=== PATIENT | male | born 1960 | race Caucasian/White ===

== ENCOUNTER 2017-02-12 12:29 | Inpatient (IN) | payer MEDICAID ==
[~2017-02-12] VITALS: Ht 188 cm; Wt 89.3 kg
[~2017-02-12 12:29] MED LIST: ALBUAER3 IN; HYDR-1421 PO; IBU800T PO
[2017-02-12 13:31] LABS: Basophils # (auto) 0.1 uL; Basophils % (auto) 0.7 % (0.0-2.0); Eosinophils # (auto) 0.1 uL; Eosinophils % (auto) 1.4 % (0.0-7.0); Hematocrit 46.5 % (41.0-53.0); Hemoglobin 15.6 g/dL (13.5-17.5); Lymphocytes # (auto) 1.4 uL; Lymphocytes % (auto) 15.8 % (10.0-50.0); Mean Corpuscular Hemoglobin 32.7 pg (28.0-32.0); Mean Corpuscular Hgb Conc. 33.6 g/dL (32.0-36.0); Mean Corpuscular Volume 97.3 fL (80.0-100.0); Mean Platelet Volume 8.9 fL (7.4-10.4); Monocytes # (auto) 0.7 uL; Monocytes % (auto) 7.8 % (0.0-12.0); Neutrophils # (auto) 6.4 uL; Neutrophils % (auto) 74.3 % (37.0-80.0); Platelet Count (auto) 232 10^3/uL (140-450); Red Cell Distribution Width 13.9 % (11.6-16.0); White Blood Cell 8.7 10^3/uL (4.4-10.8)
[2017-02-12 13:36] LABS: Albumin 3.9 g/dL (3.4-5.0); BUN/Creatinine Ratio 16.4; Bilirubin, Total 0.6 mg/dL (0.2-1.0); Calcium 9.1 mg/dL (8.5-10.1); Potassium 3.9 mmol/L (3.5-5.1); Total Protein 7.6 g/dL (6.4-8.2)
[2017-02-12] MEDS ORDERED: SODIUM CHLORIDE 0.9% 1,000 ML IV ONE (17:15)
[2017-02-12] MEDS ORDERED: HYDROmorphone HCL 2 MG/ML VL IV ONE (17:30)
[2017-02-12] MEDS ORDERED: ALUM & MAG HYDROX-SIMETH LIQ(MAALOX) 30 ML PO ONE (17:30)
[2017-02-12] MEDS ORDERED: DONNATAL 5ml ORAL Elix (BELLADONNA ALK-PHENOBARB) PO ONE (17:30)
[2017-02-12] MEDS ORDERED: PANTOPRAZOLE SODIUM 40 MG/10 ML VIAL IV ONE (17:30)
[2017-02-12] MEDS ORDERED: ONDANSETRON HCL 4 MG/2 ML VIAL IV ONE (17:30)
[2017-02-12] MEDS ORDERED: LIDOCAINE VISCOUS 2% 15ML UD PO ONE (17:30)
[2017-02-12 17:36] LABS: Urine RBC None Seen /hpf (0 - 3)
[2017-02-12 17:47] LABS: Urine Bilirubin Negative (Negative); Urine Blood Negative /uL (Negative); Urine Color Yellow (Yellow); Urine Glucose Normal (Normal); Urine Ketone Negative (Negative); Urine Nitrite Negative (Negative); Urine Urobilinogen Normal (Negative)
[2017-02-12 17:50] LABS: Amylase 16 U/L (25-115)
[2017-02-12] MEDS ORDERED: LORazepam 0.5 MG TAB PO PRN (18:45)
[2017-02-12] MEDS ORDERED: NITROGLYCERIN 0.4 MG SL TAB SL PRN (18:45)
[2017-02-12] MEDS ORDERED: ACETAMINOPHEN 500 MG TAB PO PRN (18:45)
[2017-02-12] MEDS ORDERED: MORPHINE SULF INJ 2 MG/ML SYRINGE 1ML IV PRN (18:45)
[2017-02-12] MEDS ORDERED: HYDROcodone-ACET 5/325MG TAB PO PRN (18:45)
[2017-02-12] MEDS ORDERED: PROMETHAZINE HCL 25 MG/ML 1ML IV PRN (18:45)
[2017-02-12] MEDS ORDERED: TEMAZEPAM 15 MG CAP PO PRN (18:45)
[2017-02-12] MEDS: SODIUM CHLORIDE 0.9% 1,000 ML IV SCH (19:00)
[2017-02-12] MEDS: FAMOTIDINE (10MG/ML) 2ML VL IV SCH ×2 (19:39→23:17)
[2017-02-12] MEDS: MORPHINE SULF INJ 2 MG/ML SYRINGE 1ML IV PRN (20:33)
[2017-02-12 21:00] VITALS: BP 154/89
[2017-02-12 21:20] VITALS: BP 154/89
[2017-02-12] MEDS: metroNIDAZOLE 500MG/100ML 100 ML IV SCH (23:53)
[2017-02-13] MEDS: SODIUM CHLORIDE 0.9% 1,000 ML IV SCH (04:50)
[2017-02-13 05:00] VITALS: BP 145/85
[2017-02-13] MEDS: metroNIDAZOLE 500MG/100ML 100 ML IV SCH ×2 (05:50→12:00)
[2017-02-13] MEDS: MORPHINE SULF INJ 2 MG/ML SYRINGE 1ML IV PRN ×2 (06:02→10:20)
[2017-02-13 09:17] VITALS: BP 142/79
[2017-02-13] MEDS ORDERED: PANTOPRAZOLE 40 MG TAB PO SCH (10:00)
[2017-02-13] MEDS ORDERED: FAMOTIDINE (10MG/ML) 2ML VL IV SCH (10:00)
[2017-02-13] MEDS: FAMOTIDINE (10MG/ML) 2ML VL IV SCH (10:00)
[2017-02-13 10:33] VITALS: BP 142/79
[2017-02-13 12:54] VITALS: BP 159/108
== END 2017-02-13 12:56 | disposition home or self-care (01) | DRG 241 ==
LOC: ER 12:29 → EDBD 12:29 → TELE 12:30 → TELE-EAST 20:55
PROVIDERS: ADMIT Internal Medicine; ATTEND Internal Medicine
DX: K29.20 Alcoholic gastritis without bleeding (principal); F32.9 Major depressive disorder, single episode, unspecified; F10.129 Alcohol abuse with intoxication, unspecified; F17.210 Nicotine dependence, cigarettes, uncomplicated; I70.8 Atherosclerosis of other arteries; K57.30 Diverticulosis of large intestine without perforation or abscess without bleeding; Z80.42 Family history of malignant neoplasm of prostate; G56.00 Carpal tunnel syndrome, unspecified upper limb; F12.90 Cannabis use, unspecified, uncomplicated; Z88.0 Allergy status to penicillin; Z71.9 Counseling, unspecified; Z84.89 Family history of other specified conditions; Z80.9 Family history of malignant neoplasm, unspecified; Z83.49 Family history of other endocrine, nutritional and metabolic diseases; Y90.0 Blood alcohol level of less than 20 mg/100 ml
CPT/HCPCS: 36415; 71010; 74176; 76705; 80053; 80307; 80320; 81001; 82150; 82550; 83690; 85025; 85652; 86141; 96374; 96375; 99291; C9113; J2405; J3490

== ENCOUNTER 2017-07-05 08:06 | Emergency (ER) | payer MEDICAID ==
[~2017-07-05] VITALS: Ht 188 cm; Wt 90.7 kg
[2017-07-05 08:20] VITALS: BP 160/99
[2017-07-05] MEDS ORDERED: KETOROLAC TROMETH 60MG/2ML VIAL IM ONE (08:45)
== END 2017-07-05 09:14 | disposition home or self-care (01) ==
LOC: ER 08:06
DX: M51.37 Other intervertebral disc degeneration, lumbosacral region (principal); G89.29 Other chronic pain; M54.5 Low back pain; F17.210 Nicotine dependence, cigarettes, uncomplicated; Z88.0 Allergy status to penicillin
CPT/HCPCS: 72100; 93005; 96372; 99284; J1885

== ENCOUNTER 2017-08-17 07:12 | Emergency (ER) | payer MEDICAID ==
[~2017-08-17] VITALS: Ht 188 cm; Wt 86.2 kg
[2017-08-17 07:25] VITALS: BP 155/95
[2017-08-17] MEDS ORDERED: ONDANSETRON HCL 4 MG/2 ML VIAL IM ONE (07:45)
[2017-08-17] MEDS ORDERED: MORPHINE SULF INJ 2 MG/ML SYRINGE 1ML IM ONE (07:45)
== END 2017-08-17 08:05 | disposition home or self-care (01) ==
LOC: ER 07:12
DX: M50.21 Other cervical disc displacement, high cervical region (principal); F17.210 Nicotine dependence, cigarettes, uncomplicated; Z88.0 Allergy status to penicillin
CPT/HCPCS: 96372; 99284; J2270; J2405

== ENCOUNTER → 2017-09-21 | Emergency (ER) | payer MEDICAID | END | disposition left against medical advice (07) | LOC: ER 06:37 | DX: R06.02 Shortness of breath (principal); Z53.21 Procedure and treatment not carried out due to patient leaving prior to being seen by health care provider ==

== ENCOUNTER 2017-09-23 12:34 | Emergency (ER) | payer MEDICAID ==
[2017-09-23 13:27] LABS: Basophils # (auto) 0 uL; Basophils % (auto) 0.4 % (0.0-2.0); Eosinophils # (auto) 0.1 uL; Hematocrit 44.4 % (41.0-53.0); Hemoglobin 14.9 g/dL (13.5-17.5); Lymphocytes % (auto) 12.4 % (10.0-50.0); Mean Corpuscular Hemoglobin 33.9 pg (28.0-32.0); Mean Corpuscular Hgb Conc. 33.5 g/dL (32.0-36.0); Mean Corpuscular Volume 101.2 fL (80.0-100.0); Monocytes # (auto) 0.7 uL; Monocytes % (auto) 8.8 % (0.0-12.0); Neutrophils # (auto) 6.5 uL; Neutrophils % (auto) 77.4 % (37.0-80.0); Platelet Count (auto) 269 10^3/uL (140-450); Red Blood Cells 4.39 10^6/uL (4.5-5.90); Red Cell Distribution Width 12.9 % (11.8-14.3); White Blood Cell 8.4 10^3/uL (4.4-10.8)
[2017-09-23 13:51] LABS: BUN/Creatinine Ratio 12.9; Bilirubin, Total 0.7 mg/dL (0.2-1.0); Calcium 8.9 mg/dL (8.5-10.1); Potassium 4.2 mmol/L (3.5-5.1); Total Protein 7.6 g/dL (6.4-8.2)
[2017-09-23] MEDS ORDERED: ALBUTEROL SULF 2.5 MG/0.5ML(0.5%) NEB SOLN ONE (19:39)
[2017-09-23] MEDS ORDERED: IPRATROPIUM BROM 0.5 MG/2.5ML INH SOL ONE (19:39)
== END 2017-09-23 20:30 | disposition left against medical advice (07) ==
LOC: ER 12:40
DX: R07.89 Other chest pain (principal); I10 Essential (primary) hypertension; F17.210 Nicotine dependence, cigarettes, uncomplicated; J44.9 Chronic obstructive pulmonary disease, unspecified
CPT/HCPCS: 36415; 71046; 80053; 84484; 85025; 93005; 94640

== ENCOUNTER 2017-09-24 09:04 | Inpatient (IN) | payer MEDICAID ==
[~2017-09-24] VITALS: Ht 188 cm; Wt 100.4 kg
[2017-09-24 09:35] LABS: Basophils # (auto) 0.1 uL; Eosinophils # (auto) 0.1 uL; Hemoglobin 14.5 g/dL (13.5-17.5); Lymphocytes # (auto) 1.3 uL; Neutrophils # (auto) 5.7 uL; White Blood Cell 8.1 10^3/uL (4.4-10.8)
[2017-09-24 09:37] LABS: Basophils % (auto) 0.7 % (0.0-2.0); Eosinophils % (auto) 1.6 % (0.0-7.0); Hematocrit 42.4 % (41.0-53.0); Lymphocytes % (auto) 16.5 % (10.0-50.0); Mean Corpuscular Hemoglobin 34.5 pg (28.0-32.0); Mean Corpuscular Hgb Conc. 34.3 g/dL (32.0-36.0); Mean Corpuscular Volume 100.7 fL (80.0-100.0); Monocytes # (auto) 0.9 uL; Monocytes % (auto) 10.6 % (0.0-12.0); Neutrophils % (auto) 70.6 % (37.0-80.0); Nucleated Red Blood Cells % 0.1 %; Platelet Count (auto) 263 10^3/uL (140-450); Red Blood Cells 4.21 10^6/uL (4.5-5.90)
[2017-09-24 10:05] LABS: Albumin 3.8 g/dL (3.4-5.0); BUN/Creatinine Ratio 9.3; Calcium 8.5 mg/dL (8.5-10.1); Magnesium 2.4 mg/dL (1.6-2.6); Potassium 4.4 mmol/L (3.5-5.1); Total Protein 7.1 g/dL (6.4-8.2)
[2017-09-24 12:18] LABS: Bilirubin, Total 0.9 mg/dL (0.2-1.0)
[2017-09-24] MEDS ORDERED: ASPirin 81 mg TAB PO ONE (16:15)
[2017-09-24 16:50] LABS: INR 0.95 (0.9-1.15); Prothrombin Time 10.3 sec (9.37-12.3)
[2017-09-24 16:52] LABS: Urine Bacteria NONE SEEN /hpf (None Seen); Urine Blood Negative /uL (Negative); Urine Mucus FEW (None Seen); Urine Specific Gravity 1.021 (1.001-1.035); Urine WBC 5 /hpf (0 - 3)
[2017-09-24] MEDS ORDERED: IPRATROPIUM BROM 0.5 MG/2.5ML INH SOL HHN ONE (17:15)
[2017-09-24] MEDS ORDERED: ALBUTEROL SULF 2.5 MG/0.5ML(0.5%) NEB SOLN HHN ONE (17:15)
[2017-09-24] MEDS ORDERED: methylPREDNISolone SOD SUCC 125 MG/2 ML VL IV ONE (17:15)
[2017-09-24] MEDS ORDERED: LORazepam 2MG/ML-1ML VIAL IV ONE (17:30)
[2017-09-24] MEDS ORDERED: LORazepam 0.5 MG TAB PO PRN (17:45)
[2017-09-24] MEDS ORDERED: ACETAMINOPHEN 500 MG TAB PO PRN (17:45)
[2017-09-24] MEDS ORDERED: PROMETHAZINE HCL 25 MG/ML 1ML IV PRN (17:45)
[2017-09-24] MEDS ORDERED: LACTULOSE 20Gm/30ML SOLN PO PRN (17:45)
[2017-09-24] MEDS ORDERED: MORPHINE SULFATE 10 MG/ML INJ 1ML SDV IV PRN ×2 (17:45)
[2017-09-24] MEDS ORDERED: TEMAZEPAM 15 MG CAP PO PRN (17:45)
[2017-09-24] MEDS ORDERED: SODIUM CHLORIDE 0.9% 1,000 ML IV SCH (17:45)
[2017-09-24] MEDS ORDERED: HYDROcodone-ACET 5/325MG TAB PO PRN (17:45)
[2017-09-24] MEDS ORDERED: ALBUTEROL SULF 2.5 MG/0.5ML(0.5%) NEB SOLN NEB PRN (17:45)
[2017-09-24] MEDS ORDERED: NITROGLYCERIN 0.4 MG SL TAB SL PRN (17:45)
[2017-09-24] MEDS ORDERED: IPRATROPIUM BROM 0.5 MG/2.5ML INH SOL NEB SCH (18:00)
[2017-09-24] MEDS ORDERED: ALBUTEROL SULF 2.5 MG/0.5ML(0.5%) NEB SOLN NEB SCH (18:00)
[2017-09-24 18:11] VITALS: BP 153/96
[2017-09-24] MEDS ORDERED: METOPROLOL TARTRATE 25 MG TAB PO ONE (18:30)
[2017-09-24 19:04] LABS: Alcohol, Urine < 3.0 mg/dL (0-5); Amphetamine Screen, Urine NEGATIVE (NEGATIVE); Barbiturate Scree,Urine NEGATIVE (NEGATIVE); Benzodiazephine Screen, Urine NEGATIVE (NEGATIVE); Cannabinoid Screen, Urine POSITIVE (NEGATIVE); Cocaine Screen, Urine NEGATIVE (NEGATIVE); Opiate Scree,Urine POSITIVE (NEGATIVE); Phencyclidine Screen, Urine NEGATIVE (NEGATIVE)
[2017-09-24] MEDS ORDERED: DOXYCYCLINE HYC 100MG/250ML 250 ML IV SCH (19:30)
[2017-09-24] MEDS ORDERED: OSELTAMIVIR 75 MG CAP PO ONE (19:30)
[2017-09-24] MEDS ORDERED: METOPROLOL TARTRATE 25 MG TAB PO SCH (22:00)
[2017-09-25] MEDS ORDERED: methylPREDNISolone SOD SUCC 40 MG/ML VL IV SCH
[2017-09-25] MEDS ORDERED: TEMAZEPAM 15 MG CAP ONE (02:06)
[2017-09-25] MEDS ORDERED: LORazepam 0.5 MG TAB ONE ×2 (02:06→09:18)
[2017-09-25] MEDS ORDERED: IPRATROPIUM BROM 0.5 MG/2.5ML INH SOL ONE (08:02)
[2017-09-25] MEDS ORDERED: ALBUTEROL SULF 2.5 MG/0.5ML(0.5%) NEB SOLN ONE (08:02)
[2017-09-25] MEDS ORDERED: HYDROcodone-ACET 5/325MG TAB ONE (09:18)
[2017-09-25] MEDS ORDERED: ALBUTEROL SULF 2.5 MG/0.5ML(0.5%) NEB SOLN NEB PRN (09:30)
[2017-09-25] MEDS ORDERED: ACETAMINOPHEN 500 MG TAB PO PRN (09:30)
[2017-09-25] MEDS ORDERED: MORPHINE SULF INJ 2 MG/ML SYRINGE 1ML IV PRN (09:30)
[2017-09-25] MEDS ORDERED: PROMETHAZINE HCL 25 MG/ML 1ML IV PRN (09:30)
[2017-09-25] MEDS ORDERED: LACTULOSE 20Gm/30ML SOLN PO PRN (09:30)
[2017-09-25] MEDS: LORazepam 0.5 MG TAB PO PRN ×2 (09:44→18:20)
[2017-09-25] MEDS: HYDROcodone-ACET 5/325MG TAB PO PRN ×2 (09:44→18:21)
[2017-09-25] MEDS ORDERED: OSELTAMIVIR 75 MG CAP PO ONE (09:45)
[2017-09-25] MEDS ORDERED: ASPirin 81 mg TAB ONE (09:46)
[2017-09-25] MEDS ORDERED: ENOXAPARIN SOD 40 MG/0.4 ML SYRINGE SC ONE (09:49)
[2017-09-25] MEDS ORDERED: OSELTAMIVIR 75 MG CAP PO SCH (10:00)
[2017-09-25] MEDS: SODIUM CHLORIDE 0.9% 1,000 ML IV SCH (10:09)
[2017-09-25] MEDS: METOPROLOL TARTRATE 25 MG TAB PO SCH ×2 (10:09→22:34)
[2017-09-25] MEDS: DOXYCYCLINE HYC 100MG/250ML 250 ML IV SCH ×2 (10:09→21:29)
[2017-09-25] MEDS: ASPirin 81 mg TAB PO SCH (10:09)
[2017-09-25] MEDS: ENOXAPARIN SOD 40 MG/0.4 ML SYRINGE SC SCH (10:10)
[2017-09-25 10:33] LABS: CRP High Sensitivity 0.26 mg/dL (< 0.3)
[2017-09-25] MEDS: IBUPROFEN 600 MG TAB PO SCH ×2 (11:00→22:34)
[2017-09-25] MEDS: methylPREDNISolone SOD SUCC 40 MG/ML VL IV SCH ×2 (11:52→18:20)
[2017-09-25 12:44] LABS: Basophils # (auto) 0 uL; Basophils % (auto) 0.2 % (0.0-2.0); Eosinophils # (auto) 0 uL; Eosinophils % (auto) 0.1 % (0.0-7.0)
[2017-09-25 12:46] LABS: Hematocrit 41.3 % (41.0-53.0); Hemoglobin 13.7 g/dL (13.5-17.5); Lymphocytes # (auto) 1.1 uL; Lymphocytes % (auto) 7.8 % (10.0-50.0); Mean Corpuscular Hemoglobin 33.9 pg (28.0-32.0); Mean Corpuscular Hgb Conc. 33.1 g/dL (32.0-36.0); Mean Corpuscular Volume 102.3 fL (80.0-100.0); Monocytes % (auto) 7.2 % (0.0-12.0); Neutrophils # (auto) 11.5 uL; Neutrophils % (auto) 84.7 % (37.0-80.0); Platelet Count (auto) 290 10^3/uL (140-450); Red Blood Cells 4.04 10^6/uL (4.5-5.90); Red Cell Distribution Width 13.1 % (11.8-14.3); White Blood Cell 13.6 10^3/uL (4.4-10.8)
[2017-09-25 12:48] LABS: Albumin 3.6 g/dL (3.4-5.0); Calcium 8.7 mg/dL (8.5-10.1)
[2017-09-25 12:52] LABS: Bilirubin, Total 0.6 mg/dL (0.2-1.0); Total Protein 6.8 g/dL (6.4-8.2)
[2017-09-25 14:14] LABS: BUN/Creatinine Ratio 18.7
[2017-09-25] MEDS: IPRATROPIUM BROM 0.5 MG/2.5ML INH SOL NEB SCH ×2 (14:27→19:00)
[2017-09-25] MEDS: ALBUTEROL SULF 2.5 MG/0.5ML(0.5%) NEB SOLN NEB SCH ×2 (14:27→19:00)
[2017-09-25 22:13] VITALS: BP 123/77
[2017-09-25] MEDS: TEMAZEPAM 15 MG CAP PO PRN (22:34)
[2017-09-26] MEDS: methylPREDNISolone SOD SUCC 125 MG/2 ML VL IV SCH ×4 (00:46→16:54)
[2017-09-26] MEDS: SODIUM CHLORIDE 0.9% 1,000 ML IV SCH ×2 (00:46→11:49)
[2017-09-26 05:17] VITALS: BP 139/88
[2017-09-26] MEDS: HYDROcodone-ACET 5/325MG TAB PO PRN ×3 (06:16→20:14)
[2017-09-26] MEDS: IPRATROPIUM BROM 0.5 MG/2.5ML INH SOL NEB SCH ×5 (06:28→22:09)
[2017-09-26] MEDS: ALBUTEROL SULF 2.5 MG/0.5ML(0.5%) NEB SOLN NEB SCH ×5 (06:28→22:09)
[2017-09-26 08:00] VITALS: BP 122/91
[2017-09-26 09:00] VITALS: BP 122/91
[2017-09-26] MEDS: LORazepam 0.5 MG TAB PO PRN (09:31)
[2017-09-26] MEDS: IBUPROFEN 600 MG TAB PO SCH ×2 (11:37→21:47)
[2017-09-26] MEDS: ENOXAPARIN SOD 40 MG/0.4 ML SYRINGE SC SCH (11:37)
[2017-09-26] MEDS: METOPROLOL TARTRATE 25 MG TAB PO SCH ×2 (11:38→21:47)
[2017-09-26] MEDS: DOXYCYCLINE HYC 100MG/250ML 250 ML IV SCH ×2 (11:38→21:46)
[2017-09-26] MEDS: ASPirin 81 mg TAB PO SCH (11:47)
[2017-09-26 13:00] VITALS: BP 141/98
[2017-09-26 17:00] VITALS: BP 150/103
[2017-09-26] MEDS: TEMAZEPAM 15 MG CAP PO PRN (21:47)
[2017-09-26 22:00] VITALS: BP 131/95
[2017-09-27] MEDS: methylPREDNISolone SOD SUCC 125 MG/2 ML VL IV SCH ×5 (00:17→23:48)
[2017-09-27] MEDS: SODIUM CHLORIDE 0.9% 1,000 ML IV SCH ×3 (01:26→13:22)
[2017-09-27 05:00] VITALS: BP 141/92
[2017-09-27] MEDS: ALBUTEROL SULF 2.5 MG/0.5ML(0.5%) NEB SOLN NEB SCH ×2 (06:59→11:43)
[2017-09-27] MEDS: IPRATROPIUM BROM 0.5 MG/2.5ML INH SOL NEB SCH ×4 (06:59→22:30)
[2017-09-27 08:30] VITALS: BP 152/111
[2017-09-27] MEDS: HYDROcodone-ACET 5/325MG TAB PO PRN ×2 (09:15→18:13)
[2017-09-27] MEDS: LORazepam 0.5 MG TAB PO PRN (09:15)
[2017-09-27] MEDS: DOXYCYCLINE HYC 100MG/250ML 250 ML IV SCH ×2 (09:16→21:46)
[2017-09-27 09:46] LABS: Basophils # (auto) 0 uL; Eosinophils # (auto) 0 uL; Lymphocytes # (auto) 0.2 uL; Monocytes # (auto) 0.3 uL; Monocytes % (auto) 2.3 % (0.0-12.0)
[2017-09-27 09:48] LABS: Hematocrit 40.9 % (41.0-53.0); Hemoglobin 13.5 g/dL (13.5-17.5); Lymphocytes % (auto) 1.8 % (10.0-50.0); Mean Corpuscular Hemoglobin 33.7 pg (28.0-32.0); Mean Corpuscular Hgb Conc. 33.1 g/dL (32.0-36.0); Mean Corpuscular Volume 101.9 fL (80.0-100.0); Neutrophils # (auto) 13.2 uL; Neutrophils % (auto) 95.9 % (37.0-80.0); Platelet Count (auto) 307 10^3/uL (140-450); Red Blood Cells 4.02 10^6/uL (4.5-5.90); Red Cell Distribution Width 13.1 % (11.8-14.3); White Blood Cell 13.8 10^3/uL (4.4-10.8)
[2017-09-27] MEDS: METOPROLOL TARTRATE 25 MG TAB PO SCH (10:15)
[2017-09-27] MEDS: ASPirin 81 mg TAB PO SCH (10:15)
[2017-09-27] MEDS: IBUPROFEN 600 MG TAB PO SCH ×2 (10:15→21:44)
[2017-09-27] MEDS: ENOXAPARIN SOD 40 MG/0.4 ML SYRINGE SC SCH (10:15)
[2017-09-27 10:43] LABS: Albumin 3.4 g/dL (3.4-5.0); BUN/Creatinine Ratio 24.1; Bilirubin, Total 0.4 mg/dL (0.2-1.0); Calcium 8.8 mg/dL (8.5-10.1); Potassium 3.5 mmol/L (3.5-5.1); Total Protein 6.6 g/dL (6.4-8.2)
[2017-09-27] MEDS ORDERED: METOPROLOL TARTRATE 25 MG TAB PO ONE (12:00)
[2017-09-27 13:00] VITALS: BP 143/90
[2017-09-27] MEDS ORDERED: ALBUTEROL SULF 2.5 MG/0.5ML(0.5%) NEB SOLN NEB PRN (16:45)
[2017-09-27 17:00] VITALS: BP 154/99
[2017-09-27] MEDS: LEVALBUTEROL HCL 1.25 MG/3 ML NEB NEB SCH ×2 (19:02→22:29)
[2017-09-27] MEDS: ACETYLCYSTEINE 20%(200MG/ML) SOL 4ML NEB SCH (19:03)
[2017-09-27] MEDS: BUDESONIDE (INHALATION) 0.5 MG/2 ML NEB NEB SCH (19:03)
[2017-09-27] MEDS: TEMAZEPAM 15 MG CAP PO PRN (21:44)
[2017-09-27] MEDS: METOPROLOL TARTRATE 50 MG TAB PO SCH (21:45)
[2017-09-27 22:38] VITALS: BP 148/97
[2017-09-28 05:30] VITALS: BP 155/97
[2017-09-28] MEDS: methylPREDNISolone SOD SUCC 125 MG/2 ML VL IV SCH ×4 (05:39→23:50)
[2017-09-28] MEDS: HYDROcodone-ACET 5/325MG TAB PO PRN ×3 (05:39→18:20)
[2017-09-28] MEDS: LEVALBUTEROL HCL 1.25 MG/3 ML NEB NEB SCH ×3 (07:23→19:45)
[2017-09-28] MEDS: IPRATROPIUM BROM 0.5 MG/2.5ML INH SOL NEB SCH ×3 (07:23→19:45)
[2017-09-28] MEDS: ACETYLCYSTEINE 20%(200MG/ML) SOL 4ML NEB SCH ×3 (07:23→21:50)
[2017-09-28] MEDS: BUDESONIDE (INHALATION) 0.5 MG/2 ML NEB NEB SCH ×2 (07:23→19:42)
[2017-09-28 07:59] LABS: Basophils # (auto) 0 uL; Eosinophils # (auto) 0 uL; Hemoglobin 12.9 g/dL (13.5-17.5); Lymphocytes # (auto) 0.2 uL; Mean Corpuscular Hemoglobin 34.7 pg (28.0-32.0); Monocytes # (auto) 0.4 uL; Neutrophils # (auto) 8.8 uL; White Blood Cell 9.4 10^3/uL (4.4-10.8)
[2017-09-28 08:00] VITALS: BP 157/87
[2017-09-28 08:01] LABS: Basophils % (auto) 0.1 % (0.0-2.0); Hematocrit 38.3 % (41.0-53.0); Lymphocytes % (auto) 2.6 % (10.0-50.0); Mean Corpuscular Hgb Conc. 33.7 g/dL (32.0-36.0); Mean Corpuscular Volume 102.9 fL (80.0-100.0); Monocytes % (auto) 4.2 % (0.0-12.0); Neutrophils % (auto) 93.1 % (37.0-80.0); Platelet Count (auto) 259 10^3/uL (140-450); Red Blood Cells 3.73 10^6/uL (4.5-5.90); Red Cell Distribution Width 12.9 % (11.8-14.3)
[2017-09-28 08:31] LABS: BUN/Creatinine Ratio 30.1; Calcium 8.5 mg/dL (8.5-10.1); Potassium 3.8 mmol/L (3.5-5.1)
[2017-09-28] MEDS: DOXYCYCLINE HYC 100MG/250ML 250 ML IV SCH ×2 (09:39→21:43)
[2017-09-28] MEDS: LORazepam 0.5 MG TAB PO PRN ×2 (09:47→18:39)
[2017-09-28] MEDS: ENOXAPARIN SOD 40 MG/0.4 ML SYRINGE SC SCH (09:47)
[2017-09-28] MEDS: ASPirin 81 mg TAB PO SCH (09:47)
[2017-09-28] MEDS: IBUPROFEN 600 MG TAB PO SCH ×2 (09:48→21:43)
[2017-09-28] MEDS: METOPROLOL TARTRATE 50 MG TAB PO SCH ×2 (09:48→21:44)
[2017-09-28 12:00] VITALS: BP 152/101
[2017-09-28 17:04] VITALS: BP 165/108
[2017-09-28] MEDS: SODIUM CHLORIDE 0.9% 1,000 ML IV SCH (18:40)
[2017-09-28] MEDS: NIFEdipine ER 30 MG TAB PO SCH (19:04)
[2017-09-28] MEDS: TEMAZEPAM 15 MG CAP PO PRN (21:46)
[2017-09-28 22:00] VITALS: BP 155/104
[2017-09-29 03:42] VITALS: BP 143/88
[2017-09-29] MEDS ORDERED: methylPREDNISolone SOD SUCC 125 MG/2 ML VL IV SCH (06:00)
[2017-09-29] MEDS: IPRATROPIUM BROM 0.5 MG/2.5ML INH SOL NEB SCH ×2 (06:18→11:35)
[2017-09-29] MEDS: LEVALBUTEROL HCL 1.25 MG/3 ML NEB NEB SCH ×2 (06:18→11:35)
[2017-09-29] MEDS: BUDESONIDE (INHALATION) 0.5 MG/2 ML NEB NEB SCH (06:19)
[2017-09-29] MEDS: LORazepam 0.5 MG TAB PO PRN (08:18)
[2017-09-29] MEDS: HYDROcodone-ACET 5/325MG TAB PO PRN (08:18)
[2017-09-29 09:00] VITALS: BP 166/104
[2017-09-29] MEDS: DOXYCYCLINE HYC 100MG/250ML 250 ML IV SCH (09:55)
[2017-09-29] MEDS: IBUPROFEN 600 MG TAB PO SCH (09:55)
[2017-09-29] MEDS: ASPirin 81 mg TAB PO SCH (09:55)
[2017-09-29] MEDS: METOPROLOL TARTRATE 50 MG TAB PO SCH (09:56)
[2017-09-29] MEDS: NIFEdipine ER 30 MG TAB PO SCH (09:57)
[2017-09-29] MEDS: ENOXAPARIN SOD 40 MG/0.4 ML SYRINGE SC SCH (09:57)
[2017-09-29] MEDS ORDERED: FLUTICASONE PROP NASAL SPR 0.05 % (50MCG) 16GM EACHNOSTRI SCH (10:00)
[2017-09-29 13:00] VITALS: BP 155/103
[2017-09-29 13:19] VITALS: BP 151/96
== END 2017-09-29 15:00 | disposition home or self-care (01) | DRG 140 ==
LOC: ER 09:04 → OBSVTOIN 09:05 → INTOOBSV 09:05 → TELE-WESTW 09:05 → UNDODISOB 21:22 → TELE 09-25 08:15 → TELE-WESTW 09-25 17:39
PROVIDERS: ADMIT Internal Medicine; ATTEND Internal Medicine
DX: J44.1 Chronic obstructive pulmonary disease with (acute) exacerbation (principal); I10 Essential (primary) hypertension; F41.9 Anxiety disorder, unspecified; F12.90 Cannabis use, unspecified, uncomplicated; I49.3 Ventricular premature depolarization; R09.02 Hypoxemia; F17.200 Nicotine dependence, unspecified, uncomplicated; K57.90 Diverticulosis of intestine, part unspecified, without perforation or abscess without bleeding; Z80.42 Family history of malignant neoplasm of prostate; Z88.0 Allergy status to penicillin; Z83.49 Family history of other endocrine, nutritional and metabolic diseases; Z83.3 Family history of diabetes mellitus; Z71.89 Other specified counseling
CPT/HCPCS: 36415; 71045; 71250; 80048; 80053; 80307; 81001; 82550; 83605; 83735; 83880; 84443; 84484; 85025; 85379; 85610; 85652; 85730; 86141; 87040; 87081; 87400; 93005; 93306; 94640; G0378; J3490

== ENCOUNTER 2017-11-10 04:08 | Emergency (ER) | payer MEDICAID ==
[~2017-11-10] VITALS: Ht 188 cm; Wt 95.3 kg
[2017-11-10 04:33] LABS: Urine WBC None Seen /hpf (0 - 3)
[2017-11-10 04:39] LABS: Urine Bacteria NONE SEEN /hpf (None Seen); Urine Blood Negative /uL (Negative); Urine Specific Gravity 1.004 (1.001-1.035)
[2017-11-10 05:04] LABS: Basophils # (auto) 0 uL; Eosinophils # (auto) 0.1 uL; Lymphocytes # (auto) 1.3 uL; Monocytes # (auto) 0.6 uL; Monocytes % (auto) 12.3 % (0.0-12.0); White Blood Cell 5.2 10^3/uL (4.4-10.8)
[2017-11-10 05:06] LABS: Basophils % (auto) 0.7 % (0.0-2.0); Eosinophils % (auto) 2.6 % (0.0-7.0); Hemoglobin 13.3 g/dL (13.5-17.5); Lymphocytes % (auto) 24.1 % (10.0-50.0); Mean Corpuscular Hemoglobin 34.2 pg (28.0-32.0); Mean Corpuscular Volume 100.6 fL (80.0-100.0); Neutrophils # (auto) 3.1 uL; Neutrophils % (auto) 60.3 % (37.0-80.0); Nucleated Red Blood Cells % 0.1 %; Platelet Count (auto) 202 10^3/uL (140-450); Red Blood Cells 3.88 10^6/uL (4.5-5.90); Red Cell Distribution Width 13.7 % (11.8-14.3)
[2017-11-10 05:18] LABS: Alanine Aminotransferase 34 U/L (16-61); Albumin 3.7 g/dL (3.4-5.0); Alkaline Phosphatase 72 U/L (45-117); Anion Gap 7 (5-15); Aspartate Aminotransferase 18 U/L (15-37); BUN/Creatinine Ratio 21.1; Bilirubin, Total 0.4 mg/dL (0.2-1.0); Blood Urea Nitrogen 19 mg/dL (7-18); Calcium 8.1 mg/dL (8.5-10.1); Carbon Dioxide 25 mmol/L (21-32); Chloride 107 mmol/L (98-107); GFR African American 113 mL/min; GFR Non-African American 93 mL/min; Glucose 84 mg/dL (74-106); INR 0.93 (0.9-1.15); Partial Thromboplastin Time 26.4 sec (22.64-33.71); Potassium 4.3 mmol/L (3.5-5.1); Prothrombin Time 10.1 sec (9.37-12.3); Sodium 139 mmol/L (136-145); Total Protein 6.7 g/dL (6.4-8.2)
[2017-11-10] MEDS ORDERED: KETOROLAC TROMETH 30 MG/ML 1ML VIAL IV ONE (07:15)
[2017-11-10] MEDS ORDERED: cloNIDine HCL 0.1 MG TAB PO ONE (08:15)
[2017-11-10 08:40] VITALS: BP 147/89
== END 2017-11-10 09:53 | disposition home or self-care (01) ==
LOC: ER 04:08
DX: I10 Essential (primary) hypertension (principal); J44.9 Chronic obstructive pulmonary disease, unspecified; Z87.891 Personal history of nicotine dependence; Z88.0 Allergy status to penicillin
CPT/HCPCS: 36415; 71046; 80053; 81001; 83880; 84484; 85025; 85610; 85730; 93005; 93971; 96374; 99285; J1885

== ENCOUNTER 2017-11-30 07:53 | Emergency (ER) | payer MEDICAID ==
[~2017-11-30] VITALS: Ht 188 cm; Wt 90.7 kg
[2017-11-30 08:01] VITALS: BP 142/80
[2017-11-30] MEDS ORDERED: SODIUM CHLORIDE 0.9% 1,000 ML IV ONE (09:38)
[2017-11-30] MEDS ORDERED: IPRATROPIUM BROM 0.5 MG/2.5ML INH SOL NEB ONE (10:00)
[2017-11-30] MEDS ORDERED: methylPREDNISolone SOD SUCC 125 MG/2 ML VL IV ONE (10:00)
[2017-11-30] MEDS ORDERED: ALBUTEROL SULF 2.5 MG/0.5ML(0.5%) NEB SOLN NEB ONE (10:00)
[2017-11-30 10:14] LABS: Eosinophils # (auto) 0.2 uL; Hematocrit 40.9 % (41.0-53.0); Hemoglobin 13.6 g/dL (13.5-17.5); Lymphocytes # (auto) 1.4 uL; Monocytes # (auto) 0.6 uL; Monocytes % (auto) 11.1 % (0.0-12.0); Neutrophils # (auto) 3.6 uL; White Blood Cell 5.8 10^3/uL (4.4-10.8)
[2017-11-30 10:16] LABS: Basophils # (auto) 0.1 uL; Basophils % (auto) 0.9 % (0.0-2.0); Eosinophils % (auto) 2.7 % (0.0-7.0); Lymphocytes % (auto) 23.5 % (10.0-50.0); Mean Corpuscular Hemoglobin 33.9 pg (28.0-32.0); Mean Corpuscular Hgb Conc. 33.2 g/dL (32.0-36.0); Mean Corpuscular Volume 101.9 fL (80.0-100.0); Neutrophils % (auto) 61.8 % (37.0-80.0); Nucleated Red Blood Cells % 0.1 %; Platelet Count (auto) 185 10^3/uL (140-450); Red Blood Cells 4.01 10^6/uL (4.5-5.90); Red Cell Distribution Width 13.9 % (11.8-14.3)
[2017-11-30 10:39] LABS: Alanine Aminotransferase 34 U/L (16-61); Albumin 3.6 g/dL (3.4-5.0); Alkaline Phosphatase 54 U/L (45-117); Anion Gap 6 (5-15); Aspartate Aminotransferase 19 U/L (15-37); BUN/Creatinine Ratio 14.1; Bilirubin, Total 0.5 mg/dL (0.2-1.0); Blood Urea Nitrogen 12 mg/dL (7-18); Calcium 8.5 mg/dL (8.5-10.1); Carbon Dioxide 28 mmol/L (21-32); Chloride 105 mmol/L (98-107); GFR African American 120 mL/min; GFR Non-African American 99 mL/min; Glucose 71 mg/dL (74-106); Potassium 4.3 mmol/L (3.5-5.1); Sodium 139 mmol/L (136-145); Total Protein 6.4 g/dL (6.4-8.2)
[2017-11-30] MEDS ORDERED: LEVOFLOXACIN 750MG 150 ML IV ONE (10:45)
== END 2017-11-30 11:48 | disposition home or self-care (01) ==
LOC: ER 07:53
DX: J18.9 Pneumonia, unspecified organism (principal); J44.9 Chronic obstructive pulmonary disease, unspecified; I11.0 Hypertensive heart disease with heart failure; I50.9 Heart failure, unspecified
CPT/HCPCS: 36415; 71046; 80053; 83880; 84484; 85025; 93005; 94640; 96365; 96375; 99285; J1956; J2930

== ENCOUNTER 2018-02-12 10:10 | Inpatient (IN) | payer MEDICAID, OTHER ==
[~2018-02-12] VITALS: Ht 177.8 cm; Wt 96.2 kg
[2018-02-12] MEDS ORDERED: ALBUTEROL SULF 2.5 MG/0.5ML(0.5%) NEB SOLN HHN ONE (10:30)
[2018-02-12] MEDS ORDERED: IPRATROPIUM BROM 0.5 MG/2.5ML INH SOL HHN ONE (10:30)
[2018-02-12] MEDS ORDERED: FUROSEMIDE 40 MG/4 ML VIAL IV ONE (10:30)
[2018-02-12] MEDS ORDERED: methylPREDNISolone SOD SUCC 125 MG/2 ML VL IV ONE (10:30)
[2018-02-12] MEDS ORDERED: ONDANSETRON HCL 4 MG/2 ML VIAL IV ONE (10:45)
[2018-02-12] MEDS ORDERED: MORPHINE SULFATE 4 MG/ML SYR/VIAL IV ONE (10:45)
[2018-02-12 10:49] LABS: Basophils # (auto) 0.1 uL; Basophils % (auto) 0.8 % (0.0-2.0); Eosinophils # (auto) 0.2 uL; Eosinophils % (auto) 3.2 % (0.0-7.0); Hematocrit 48.4 % (41.0-53.0); Hemoglobin 15.8 g/dL (13.5-17.5); Lymphocytes # (auto) 1.1 uL; Lymphocytes % (auto) 15.2 % (10.0-50.0); Mean Corpuscular Hemoglobin 32.3 pg (28.0-32.0); Mean Corpuscular Hgb Conc. 32.6 g/dL (32.0-36.0); Mean Corpuscular Volume 98.9 fL (80.0-100.0); Monocytes # (auto) 0.8 uL; Monocytes % (auto) 11.7 % (0.0-12.0); Neutrophils # (auto) 4.8 uL; Neutrophils % (auto) 69.1 % (37.0-80.0); Nucleated Red Blood Cells % 0.2 %; Platelet Count (auto) 190 10^3/uL (140-450); Red Cell Distribution Width 15.2 % (11.8-14.3); White Blood Cell 6.9 10^3/uL (4.4-10.8)
[2018-02-12] MEDS ORDERED: MORPHINE SULFATE INJECTION 1 ML ONE ×2 (10:54→20:55)
[2018-02-12 11:05] LABS: Alanine Aminotransferase 66 U/L (16-61); Albumin 3.5 g/dL (3.4-5.0); Anion Gap 7 (5-15); Aspartate Aminotransferase 48 U/L (15-37); BUN/Creatinine Ratio 9.5; Blood Urea Nitrogen 8 mg/dL (7-18); Calcium 8.7 mg/dL (8.5-10.1); Carbon Dioxide 27 mmol/L (21-32); Chloride 106 mmol/L (98-107); GFR African American 122 mL/min; GFR Non-African American 100 mL/min; Glucose 80 mg/dL (74-106); Magnesium 2.3 mg/dL (1.6-2.6); Potassium 4.2 mmol/L (3.5-5.1); Sodium 140 mmol/L (136-145)
[2018-02-12 11:10] LABS: Alkaline Phosphatase 86 U/L (45-117); Bilirubin, Total 0.7 mg/dL (0.2-1.0); Total Protein 6.9 g/dL (6.4-8.2)
[2018-02-12 11:29] LABS: Urine Bacteria NONE SEEN /hpf (None Seen); Urine Blood Negative /uL (Negative); Urine Specific Gravity 1.004 (1.001-1.035)
[2018-02-12 11:30] LABS: Urine WBC 0 /hpf (0 - 3)
[2018-02-12] MEDS ORDERED: NITROGLYCERIN 0.4 MG SL TAB SL PRN (11:30)
[2018-02-12] MEDS: methylPREDNISolone SOD SUCC 40 MG/ML VL IV SCH ×2 (11:30→23:30)
[2018-02-12] MEDS ORDERED: PROMETHAZINE HCL 25 MG/ML 1ML IV PRN (11:30)
[2018-02-12] MEDS ORDERED: LACTULOSE 20Gm/30ML SOLN PO PRN (11:30)
[2018-02-12] MEDS ORDERED: MORPHINE SULFATE 4 MG/ML SYR/VIAL IV PRN ×2 (11:30)
[2018-02-12] MEDS ORDERED: NITROGLYCERIN 0.2MG/HR TOPICAL PATCH TD ONE (11:45)
[2018-02-12] MEDS ORDERED: PANTOPRAZOLE 40 MG TAB PO ONE (11:45)
[2018-02-12] MEDS ORDERED: cefTRIAXone 1GM/10ml IVPUSH 10 ML IV ONE (11:45)
[2018-02-12] MEDS ORDERED: ASPirin 81 mg TAB PO ONE (11:45)
[2018-02-12] MEDS ORDERED: ENOXAPARIN SOD 40 MG/0.4 ML SYRINGE SC ONE (11:45)
[2018-02-12] MEDS ORDERED: ENALAPRIL MALEATE 2.5 MG TAB PO ONE (11:45)
[2018-02-12] MEDS ORDERED: AZITHROMYCIN 500MG/ 250ML 250 ML IV ONE (11:45)
[2018-02-12] MEDS: IPRATROPIUM BROM 0.5 MG/2.5ML INH SOL NEB SCH ×2 (12:00→18:23)
[2018-02-12] MEDS: ALBUTEROL SULF 2.5 MG/0.5ML(0.5%) NEB SOLN NEB SCH ×2 (12:00→18:23)
[2018-02-12 12:04] LABS: Hepatitis B Surface Antibody Negative
[2018-02-12 12:17] LABS: Hepatitis B Surface Antigen Negative (Negative)
[2018-02-12 12:19] LABS: Amphetamine Screen, Urine NEGATIVE (NEGATIVE); Barbiturate Scree,Urine NEGATIVE (NEGATIVE); Benzodiazephine Screen, Urine NEGATIVE (NEGATIVE); Cannabinoid Screen, Urine NEGATIVE (NEGATIVE); Cocaine Screen, Urine NEGATIVE (NEGATIVE); Opiate Scree,Urine NEGATIVE (NEGATIVE); Phencyclidine Screen, Urine NEGATIVE (NEGATIVE)
[2018-02-12 12:43] LABS: Hepatitis A Total Antibody Negative
[2018-02-12 14:26] VITALS: BP 155/62
[2018-02-12] MEDS: SODIUM CHLOR 0.9% PF (SALINE LOCK) 10ML VIAL/SYR IV SCH ×2 (14:58→22:12)
[2018-02-12] MEDS: LORazepam 0.5 MG TAB PO PRN (18:02)
[2018-02-12] MEDS ORDERED: IOHEXOL 350 MG/ML 100ML IJ ONE (18:53)
[2018-02-12] MEDS ORDERED: SODIUM CHLORIDE 0.9% 1,000 ML IV ONE (19:00)
[2018-02-12] MEDS: SODIUM CHLORIDE 0.9% 1,000 ML IV SCH (19:00)
[2018-02-12] MEDS ORDERED: chlordiazePOXIDE HCL 25 MG CAP PO ONE (19:30)
[2018-02-12] MEDS ORDERED: THIAMINE 100mg/ml INJ (200mg/2ml VIAL) IV ONE (19:30)
[2018-02-12] MEDS ORDERED: THIAMINE 100mg/ml INJ (200mg/2ml VIAL) ONE (20:08)
[2018-02-12] MEDS: chlordiazePOXIDE HCL 25 MG CAP PO SCH (22:21)
[2018-02-12] MEDS: CARVEDILOL 3.125 MG TAB PO SCH (22:21)
[2018-02-13] MEDS: ALBUTEROL SULF 2.5 MG/0.5ML(0.5%) NEB SOLN NEB SCH ×5 (01:29→19:11)
[2018-02-13] MEDS: IPRATROPIUM BROM 0.5 MG/2.5ML INH SOL NEB SCH ×4 (01:29→19:11)
[2018-02-13] MEDS: TEMAZEPAM 15 MG CAP PO PRN (02:41)
[2018-02-13] MEDS: SODIUM CHLORIDE 0.9% 1,000 ML IV SCH ×2 (05:27→15:26)
[2018-02-13 05:53] LABS: Albumin 3.3 g/dL (3.4-5.0); BUN/Creatinine Ratio 14.7; Bilirubin, Total 0.6 mg/dL (0.2-1.0); Calcium 8.4 mg/dL (8.5-10.1); Potassium 4.8 mmol/L (3.5-5.1); Total Protein 6.4 g/dL (6.4-8.2)
[2018-02-13] MEDS: SODIUM CHLOR 0.9% PF (SALINE LOCK) 10ML VIAL/SYR IV SCH ×3 (06:00→21:47)
[2018-02-13] MEDS: chlordiazePOXIDE HCL 25 MG CAP PO SCH ×5 (06:00→21:54)
[2018-02-13] MEDS: cefTRIAXone 1GM/10ml IVPUSH 10 ML IV SCH (09:09)
[2018-02-13] MEDS ORDERED: MORPHINE SULFATE INJECTION 1 ML ONE (09:14)
[2018-02-13 09:45] LABS: Hepatitis B Core Total AB Negative; Hepatitis C Antibody Negative (Negative)
[2018-02-13] MEDS: NITROGLYCERIN 0.2MG/HR TOPICAL PATCH TD SCH (11:00)
[2018-02-13] MEDS: ENOXAPARIN SOD 40 MG/0.4 ML SYRINGE SC SCH (11:00)
[2018-02-13] MEDS: ENALAPRIL MALEATE 2.5 MG TAB PO SCH (11:00)
[2018-02-13] MEDS: PANTOPRAZOLE 40 MG TAB PO SCH (11:00)
[2018-02-13] MEDS: ASPirin 81 mg TAB PO SCH (11:00)
[2018-02-13] MEDS: CARVEDILOL 3.125 MG TAB PO SCH ×3 (11:00→21:54)
[2018-02-13] MEDS: THIAMINE 100mg/ml INJ (200mg/2ml VIAL) IV SCH (11:00)
[2018-02-13] MEDS: AZITHROMYCIN 500MG/ 250ML 250 ML IV SCH (11:00)
[2018-02-13] MEDS: methylPREDNISolone SOD SUCC 40 MG/ML VL IV SCH ×2 (13:00→23:22)
[2018-02-13 16:25] VITALS: BP 143/93
[2018-02-13 16:30] VITALS: BP 143/93
[2018-02-13] MEDS: MORPHINE SULFATE 8mg/ml INJ SDV IV PRN (17:14)
[2018-02-13] MEDS ORDERED: MORPHINE SULFATE 8mg/ml INJ SDV IV PRN (17:15)
[2018-02-13] MEDS ORDERED: IPRAAER6 IN (18:23)
[2018-02-13] MEDS ORDERED: HYDR-531 PO (18:23)
[2018-02-13] MEDS ORDERED: DICL75TA2 PO (18:23)
[2018-02-13] MEDS ORDERED: RANI150C11 PO (18:23)
[2018-02-13] MEDS ORDERED: ASPI81CH4 PO (18:31)
[2018-02-13] MEDS ORDERED: MET50T PO (18:31)
[2018-02-13] MEDS ORDERED: VERA240C2 PO (18:31)
[2018-02-13] MEDS ORDERED: FURO20TA3 PO (18:31)
[2018-02-13 20:00] VITALS: BP 133/101
[2018-02-14] VITALS (8 sets, daily range): BP systolic 140–154; BP diastolic 76–114
[2018-02-14] MEDS: SODIUM CHLORIDE 0.9% 1,000 ML IV SCH ×2 (05:20→11:00)
[2018-02-14] MEDS: IPRATROPIUM BROM 0.5 MG/2.5ML INH SOL NEB SCH ×4 (05:48→18:50)
[2018-02-14] MEDS: ALBUTEROL SULF 2.5 MG/0.5ML(0.5%) NEB SOLN NEB SCH ×4 (05:49→18:50)
[2018-02-14] MEDS: SODIUM CHLOR 0.9% PF (SALINE LOCK) 10ML VIAL/SYR IV SCH ×3 (05:49→22:42)
[2018-02-14] MEDS: MORPHINE SULFATE 8mg/ml INJ SDV IV PRN ×3 (05:50→20:25)
[2018-02-14] MEDS: chlordiazePOXIDE HCL 25 MG CAP PO SCH ×3 (05:58→17:16)
[2018-02-14 06:24] LABS: Basophils # (auto) 0 uL; Eosinophils # (auto) 0 uL; Hematocrit 46.4 % (41.0-53.0); Lymphocytes # (auto) 0.4 uL; Lymphocytes % (auto) 3.1 % (10.0-50.0); Mean Corpuscular Hgb Conc. 32.4 g/dL (32.0-36.0); Nucleated Red Blood Cells % 0.1 %
[2018-02-14 06:28] LABS: Basophils % (auto) 0.1 % (0.0-2.0); Mean Corpuscular Hemoglobin 32.8 pg (28.0-32.0); Mean Corpuscular Volume 101.3 fL (80.0-100.0); Monocytes # (auto) 0.5 uL; Neutrophils # (auto) 12.3 uL; Neutrophils % (auto) 92.8 % (37.0-80.0); Platelet Count (auto) 175 10^3/uL (140-450); Red Blood Cells 4.58 10^6/uL (4.5-5.90); Red Cell Distribution Width 14.9 % (11.8-14.3); White Blood Cell 13.2 10^3/uL (4.4-10.8)
[2018-02-14 06:31] LABS: BUN/Creatinine Ratio 14.1; Calcium 8.5 mg/dL (8.5-10.1); Magnesium 2.6 mg/dL (1.6-2.6); Potassium 4.6 mmol/L (3.5-5.1)
[2018-02-14 06:33] LABS: Bilirubin, Total 0.4 mg/dL (0.2-1.0); Total Protein 6.1 g/dL (6.4-8.2)
[2018-02-14] MEDS: cefTRIAXone 1GM/10ml IVPUSH 10 ML IV SCH (09:32)
[2018-02-14] MEDS: AZITHROMYCIN 500MG/ 250ML 250 ML IV SCH (09:33)
[2018-02-14] MEDS: THIAMINE 100mg/ml INJ (200mg/2ml VIAL) IV SCH (09:33)
[2018-02-14] MEDS: PANTOPRAZOLE 40 MG TAB PO SCH (09:34)
[2018-02-14] MEDS: ENALAPRIL MALEATE 2.5 MG TAB PO SCH (09:34)
[2018-02-14] MEDS: ASPirin 81 mg TAB PO SCH (09:34)
[2018-02-14] MEDS: ENOXAPARIN SOD 40 MG/0.4 ML SYRINGE SC SCH (09:35)
[2018-02-14] MEDS: NITROGLYCERIN 0.2MG/HR TOPICAL PATCH TD SCH (09:36)
[2018-02-14] MEDS: CARVEDILOL 3.125 MG TAB PO SCH (09:47)
[2018-02-14] MEDS ORDERED: CARVEDILOL 3.125 MG TAB PO ONE (11:00)
[2018-02-14] MEDS ORDERED: ENALAPRIL MALEATE 2.5 MG TAB PO ONE (11:00)
[2018-02-14] MEDS: methylPREDNISolone SOD SUCC 40 MG/ML VL IV SCH ×2 (11:22→23:47)
[2018-02-14] MEDS: CARVEDILOL 12.5 MG TAB PO SCH (22:30)
[2018-02-14] MEDS: TEMAZEPAM 15 MG CAP PO PRN (22:42)
[2018-02-14] MEDS: ACETAMINOPHEN 500 MG TAB PO PRN (23:47)
[2018-02-15] VITALS (7 sets, daily range): BP systolic 139–152; BP diastolic 76–122
[2018-02-15] MEDS: IPRATROPIUM BROM 0.5 MG/2.5ML INH SOL NEB SCH ×5 (00:48→18:57)
[2018-02-15] MEDS: ALBUTEROL SULF 2.5 MG/0.5ML(0.5%) NEB SOLN NEB SCH ×5 (00:48→18:57)
[2018-02-15] MEDS: HYDROcodone-ACET 5/325MG TAB PO PRN (03:49)
[2018-02-15] MEDS: SODIUM CHLORIDE 0.9% 1,000 ML IV SCH ×3 (05:00→17:00)
[2018-02-15 05:51] LABS: Basophils # (auto) 0 uL; Basophils % (auto) 0.1 % (0.0-2.0); Eosinophils # (auto) 0 uL; Hematocrit 46.8 % (41.0-53.0); Hemoglobin 15.1 g/dL (13.5-17.5); Lymphocytes # (auto) 0.5 uL; Mean Corpuscular Hemoglobin 32.7 pg (28.0-32.0); Mean Corpuscular Hgb Conc. 32.2 g/dL (32.0-36.0); Mean Corpuscular Volume 101.5 fL (80.0-100.0); Monocytes # (auto) 0.5 uL; Monocytes % (auto) 5.2 % (0.0-12.0); Neutrophils # (auto) 8.3 uL; Neutrophils % (auto) 89.7 % (37.0-80.0); Platelet Count (auto) 158 10^3/uL (140-450); Red Blood Cells 4.61 10^6/uL (4.5-5.90); Red Cell Distribution Width 15.1 % (11.8-14.3); White Blood Cell 9.3 10^3/uL (4.4-10.8)
[2018-02-15] MEDS: chlordiazePOXIDE HCL 25 MG CAP PO SCH ×4 (05:55→21:29)
[2018-02-15] MEDS: SODIUM CHLOR 0.9% PF (SALINE LOCK) 10ML VIAL/SYR IV SCH ×3 (05:55→22:00)
[2018-02-15 06:08] LABS: Albumin 3.1 g/dL (3.4-5.0); BUN/Creatinine Ratio 17.1; Bilirubin, Total 0.3 mg/dL (0.2-1.0); Calcium 8.3 mg/dL (8.5-10.1); Potassium 4.8 mmol/L (3.5-5.1); Total Protein 6.1 g/dL (6.4-8.2)
[2018-02-15] MEDS: MORPHINE SULFATE 8mg/ml INJ SDV IV PRN ×2 (08:33→23:48)
[2018-02-15] MEDS: cefTRIAXone 1GM/10ml IVPUSH 10 ML IV SCH (08:51)
[2018-02-15] MEDS: AZITHROMYCIN 500MG/ 250ML 250 ML IV SCH (09:54)
[2018-02-15] MEDS: THIAMINE 100mg/ml INJ (200mg/2ml VIAL) IV SCH (09:54)
[2018-02-15] MEDS: ENOXAPARIN SOD 40 MG/0.4 ML SYRINGE SC SCH (09:54)
[2018-02-15] MEDS: NITROGLYCERIN 0.2MG/HR TOPICAL PATCH TD SCH (09:58)
[2018-02-15] MEDS: ENALAPRIL MALEATE 10 MG TAB PO SCH (09:59)
[2018-02-15] MEDS: ASPirin 81 mg TAB PO SCH (09:59)
[2018-02-15] MEDS: PANTOPRAZOLE 40 MG TAB PO SCH (09:59)
[2018-02-15] MEDS: CARVEDILOL 12.5 MG TAB PO SCH ×2 (10:00→21:28)
[2018-02-15] MEDS: ACETAMINOPHEN 500 MG TAB PO PRN (10:02)
[2018-02-15] MEDS: methylPREDNISolone SOD SUCC 40 MG/ML VL IV SCH ×2 (11:53→23:36)
[2018-02-15] MEDS: LORazepam 0.5 MG TAB PO PRN (16:02)
[2018-02-15] MEDS: TEMAZEPAM 15 MG CAP PO PRN (22:29)
[2018-02-16] MEDS: ACETAMINOPHEN 500 MG TAB PO PRN ×2 (00:30→06:31)
[2018-02-16] MEDS: SODIUM CHLORIDE 0.9% 1,000 ML IV SCH (03:05)
[2018-02-16 04:19] VITALS: BP 148/94
[2018-02-16] MEDS: chlordiazePOXIDE HCL 25 MG CAP PO SCH ×4 (05:23→22:01)
[2018-02-16] MEDS: SODIUM CHLOR 0.9% PF (SALINE LOCK) 10ML VIAL/SYR IV SCH ×3 (05:40→22:10)
[2018-02-16] MEDS: MORPHINE SULFATE 8mg/ml INJ SDV IV PRN ×2 (06:17→10:58)
[2018-02-16] MEDS: ALBUTEROL SULF 2.5 MG/0.5ML(0.5%) NEB SOLN NEB SCH ×5 (07:27→23:42)
[2018-02-16] MEDS: IPRATROPIUM BROM 0.5 MG/2.5ML INH SOL NEB SCH ×5 (07:27→23:42)
[2018-02-16 08:00] VITALS: BP 150/102
[2018-02-16] MEDS: cefTRIAXone 1GM/10ml IVPUSH 10 ML IV SCH (08:38)
[2018-02-16] MEDS: AZITHROMYCIN 500MG/ 250ML 250 ML IV SCH (10:43)
[2018-02-16] MEDS: THIAMINE 100mg/ml INJ (200mg/2ml VIAL) IV SCH (10:43)
[2018-02-16] MEDS: ENALAPRIL MALEATE 10 MG TAB PO SCH (10:43)
[2018-02-16] MEDS: NITROGLYCERIN 0.2MG/HR TOPICAL PATCH TD SCH (10:44)
[2018-02-16] MEDS: ENOXAPARIN SOD 40 MG/0.4 ML SYRINGE SC SCH (10:44)
[2018-02-16] MEDS: PANTOPRAZOLE 40 MG TAB PO SCH (10:45)
[2018-02-16] MEDS: CARVEDILOL 12.5 MG TAB PO SCH ×2 (10:45→22:00)
[2018-02-16] MEDS: ASPirin 81 mg TAB PO SCH (10:45)
[2018-02-16 11:45] VITALS: BP 145/106
[2018-02-16] MEDS: methylPREDNISolone SOD SUCC 40 MG/ML VL IV SCH ×2 (12:00→22:02)
[2018-02-16] MEDS: HYDROcodone-ACET 5/325MG TAB PO PRN (12:05)
[2018-02-16] MEDS ORDERED: LABETALOL HCL 5 MG/ML ML 20ML VIAL IV PRN (12:30)
[2018-02-16] MEDS ORDERED: MONTELUKAST SODIUM 10 MG TAB PO ONE (12:30)
[2018-02-16] MEDS ORDERED: NIFEdipine ER 30 MG TAB PO ONE (12:30)
[2018-02-16] MEDS ORDERED: MORPHINE SULFATE 8mg/ml INJ SDV IV PRN (12:45)
[2018-02-16] MEDS: LORazepam 0.5 MG TAB PO PRN (12:54)
[2018-02-16 15:54] VITALS: BP 146/100
[2018-02-16] MEDS: ALBUTEROL SULF 2.5 MG/0.5ML(0.5%) NEB SOLN NEB PRN (16:37)
[2018-02-16 16:56] VITALS: BP 139/97
[2018-02-16 19:50] VITALS: BP 156/93
[2018-02-16] MEDS: TEMAZEPAM 15 MG CAP PO PRN (22:02)
[2018-02-16] MEDS: HYDROcodone-ACET 10/325MG TAB PO PRN (22:02)
[2018-02-16] MEDS: MONTELUKAST SODIUM 10 MG TAB PO SCH (22:11)
[2018-02-17] VITALS (7 sets, daily range): BP systolic 134–158; BP diastolic 77–118
[2018-02-17 05:18] LABS: Basophils # (auto) 0 uL; Basophils % (auto) 0.3 % (0.0-2.0); Eosinophils # (auto) 0 uL; Hematocrit 46.2 % (41.0-53.0); Hemoglobin 15.1 g/dL (13.5-17.5); Lymphocytes # (auto) 0.4 uL; Lymphocytes % (auto) 3.9 % (10.0-50.0); Mean Corpuscular Hemoglobin 32.8 pg (28.0-32.0); Mean Corpuscular Hgb Conc. 32.6 g/dL (32.0-36.0); Mean Corpuscular Volume 100.4 fL (80.0-100.0); Monocytes # (auto) 0.5 uL; Monocytes % (auto) 5.3 % (0.0-12.0); Neutrophils # (auto) 8.5 uL; Neutrophils % (auto) 90.5 % (37.0-80.0); Platelet Count (auto) 170 10^3/uL (140-450); Red Cell Distribution Width 14.5 % (11.8-14.3); White Blood Cell 9.4 10^3/uL (4.4-10.8)
[2018-02-17 05:36] LABS: Albumin 3.2 g/dL (3.4-5.0); BUN/Creatinine Ratio 21.3; Bilirubin, Total 0.3 mg/dL (0.2-1.0); Calcium 8.6 mg/dL (8.5-10.1); Magnesium 2.8 mg/dL (1.6-2.6); Potassium 4.2 mmol/L (3.5-5.1); Total Protein 6.2 g/dL (6.4-8.2)
[2018-02-17] MEDS: SODIUM CHLOR 0.9% PF (SALINE LOCK) 10ML VIAL/SYR IV SCH ×3 (06:00→22:00)
[2018-02-17] MEDS: ALBUTEROL SULF 2.5 MG/0.5ML(0.5%) NEB SOLN NEB SCH ×3 (06:00→18:45)
[2018-02-17] MEDS: chlordiazePOXIDE HCL 25 MG CAP PO SCH ×4 (06:00→22:00)
[2018-02-17] MEDS: IPRATROPIUM BROM 0.5 MG/2.5ML INH SOL NEB SCH ×3 (06:00→18:45)
[2018-02-17] MEDS: ALBUTEROL SULF 2.5 MG/0.5ML(0.5%) NEB SOLN NEB PRN ×2 (09:40→16:26)
[2018-02-17] MEDS: ENOXAPARIN SOD 40 MG/0.4 ML SYRINGE SC SCH (10:00)
[2018-02-17] MEDS: NITROGLYCERIN 0.2MG/HR TOPICAL PATCH TD SCH (10:00)
[2018-02-17] MEDS ORDERED: NIFEdipine ER 30 MG TAB PO SCH (10:00)
[2018-02-17] MEDS: AZITHROMYCIN 500MG/ 250ML 250 ML IV SCH (10:01)
[2018-02-17] MEDS: THIAMINE 100mg/ml INJ (200mg/2ml VIAL) IV SCH (10:01)
[2018-02-17] MEDS: HYDROcodone-ACET 10/325MG TAB PO PRN ×2 (10:01→17:55)
[2018-02-17] MEDS: cefTRIAXone 1GM/10ml IVPUSH 10 ML IV SCH (10:01)
[2018-02-17] MEDS: ASPirin 81 mg TAB PO SCH (10:02)
[2018-02-17] MEDS: PANTOPRAZOLE 40 MG TAB PO SCH (10:02)
[2018-02-17] MEDS ORDERED: ADENOSINE 83 MG in GIVE UN-DILUTED 0 ML IV ONE (11:15)
[2018-02-17] MEDS: ENALAPRIL MALEATE 10 MG TAB PO SCH (13:31)
[2018-02-17] MEDS: NIFEdipine ER 30 MG TAB PO SCH (13:31)
[2018-02-17] MEDS: methylPREDNISolone SOD SUCC 40 MG/ML VL IV SCH ×2 (13:32→23:30)
[2018-02-17] MEDS: CARVEDILOL 12.5 MG TAB PO SCH ×2 (13:32→22:00)
[2018-02-17] MEDS: LORazepam 0.5 MG TAB PO PRN ×2 (15:57→22:47)
[2018-02-17] MEDS: MONTELUKAST SODIUM 10 MG TAB PO SCH (22:00)
[2018-02-18] MEDS: IPRATROPIUM BROM 0.5 MG/2.5ML INH SOL NEB SCH ×3 (06:00→19:32)
[2018-02-18] MEDS: ALBUTEROL SULF 2.5 MG/0.5ML(0.5%) NEB SOLN NEB SCH ×3 (06:00→19:32)
[2018-02-18] MEDS: chlordiazePOXIDE HCL 25 MG CAP PO SCH ×4 (06:00→21:51)
[2018-02-18] MEDS: SODIUM CHLOR 0.9% PF (SALINE LOCK) 10ML VIAL/SYR IV SCH ×3 (06:00→21:52)
[2018-02-18] MEDS: HYDROcodone-ACET 10/325MG TAB PO PRN ×3 (06:51→19:34)
[2018-02-18 08:00] VITALS: BP 137/89
[2018-02-18] MEDS: cefTRIAXone 1GM/10ml IVPUSH 10 ML IV SCH (09:19)
[2018-02-18] MEDS: THIAMINE 100mg/ml INJ (200mg/2ml VIAL) IV SCH (09:36)
[2018-02-18] MEDS: AZITHROMYCIN 500MG/ 250ML 250 ML IV SCH (09:36)
[2018-02-18] MEDS: ASPirin 81 mg TAB PO SCH (09:36)
[2018-02-18] MEDS: CARVEDILOL 12.5 MG TAB PO SCH ×2 (09:37→21:51)
[2018-02-18] MEDS: NIFEdipine ER 30 MG TAB PO SCH (09:38)
[2018-02-18] MEDS: ENALAPRIL MALEATE 10 MG TAB PO SCH (09:38)
[2018-02-18] MEDS: PANTOPRAZOLE 40 MG TAB PO SCH (09:38)
[2018-02-18] MEDS: NITROGLYCERIN 0.2MG/HR TOPICAL PATCH TD SCH (09:39)
[2018-02-18] MEDS: LORazepam 0.5 MG TAB PO PRN ×2 (09:50→18:10)
[2018-02-18] MEDS: THEOPHYLLINE 80 MG/15ml ORAL Elixir PO SCH (10:00)
[2018-02-18] MEDS: ENOXAPARIN SOD 40 MG/0.4 ML SYRINGE SC SCH (10:31)
[2018-02-18 12:00] VITALS: BP 130/87
[2018-02-18] MEDS: methylPREDNISolone SOD SUCC 40 MG/ML VL IV SCH ×2 (12:04→23:04)
[2018-02-18 14:04] VITALS: BP 130/87
[2018-02-18 16:51] VITALS: BP 120/75
[2018-02-18 21:30] VITALS: BP_SYST 123; BP_SYST 126; BP_DIAS 70; BP_DIAS 85
[2018-02-18] MEDS: MONTELUKAST SODIUM 10 MG TAB PO SCH (21:50)
[2018-02-18] MEDS: TEMAZEPAM 15 MG CAP PO PRN (21:52)
[2018-02-19 05:00] VITALS: BP 108/75
[2018-02-19] MEDS: chlordiazePOXIDE HCL 25 MG CAP PO SCH ×4 (05:23→22:02)
[2018-02-19] MEDS: SODIUM CHLOR 0.9% PF (SALINE LOCK) 10ML VIAL/SYR IV SCH ×3 (05:58→22:00)
[2018-02-19 07:06] LABS: Basophils # (auto) 0 uL; Basophils % (auto) 0.3 % (0.0-2.0); Eosinophils # (auto) 0 uL; Hemoglobin 16.3 g/dL (13.5-17.5); Lymphocytes # (auto) 0.7 uL; Lymphocytes % (auto) 6.1 % (10.0-50.0); Mean Corpuscular Hemoglobin 32.5 pg (28.0-32.0); Mean Corpuscular Hgb Conc. 32.6 g/dL (32.0-36.0); Mean Corpuscular Volume 99.5 fL (80.0-100.0); Monocytes # (auto) 0.8 uL; Monocytes % (auto) 7.6 % (0.0-12.0); Neutrophils # (auto) 9.2 uL; Platelet Count (auto) 237 10^3/uL (140-450); Red Blood Cells 5.02 10^6/uL (4.5-5.90); Red Cell Distribution Width 14.9 % (11.8-14.3); White Blood Cell 10.7 10^3/uL (4.4-10.8)
[2018-02-19 07:26] LABS: Potassium 5.1 mmol/L (3.5-5.1)
[2018-02-19 07:41] LABS: Albumin 3.2 g/dL (3.4-5.0); BUN/Creatinine Ratio 24.1; Calcium 8.8 mg/dL (8.5-10.1)
[2018-02-19 07:44] LABS: Bilirubin, Total 0.4 mg/dL (0.2-1.0); Total Protein 6.7 g/dL (6.4-8.2)
[2018-02-19] MEDS: THIAMINE 100mg/ml INJ (200mg/2ml VIAL) IV SCH (08:56)
[2018-02-19] MEDS: CARVEDILOL 12.5 MG TAB PO SCH ×2 (08:57→22:02)
[2018-02-19] MEDS: PANTOPRAZOLE 40 MG TAB PO SCH (08:58)
[2018-02-19] MEDS: ENALAPRIL MALEATE 10 MG TAB PO SCH (08:58)
[2018-02-19] MEDS: ASPirin 81 mg TAB PO SCH (08:58)
[2018-02-19] MEDS: THEOPHYLLINE 80 MG/15ml ORAL Elixir PO SCH (08:59)
[2018-02-19] MEDS: cefTRIAXone 1GM/10ml IVPUSH 10 ML IV SCH (08:59)
[2018-02-19] MEDS: AZITHROMYCIN 500MG/ 250ML 250 ML IV SCH (08:59)
[2018-02-19] MEDS: ENOXAPARIN SOD 60 MG/0.6 ML SYRINGE SC SCH (09:00)
[2018-02-19] MEDS: NITROGLYCERIN 0.2MG/HR TOPICAL PATCH TD SCH (09:03)
[2018-02-19 09:20] VITALS: BP 114/64
[2018-02-19] MEDS: NIFEdipine ER 30 MG TAB PO SCH (10:00)
[2018-02-19] MEDS: HYDROcodone-ACET 10/325MG TAB PO PRN ×2 (11:52→19:55)
[2018-02-19] MEDS: methylPREDNISolone SOD SUCC 40 MG/ML VL IV SCH (11:53)
[2018-02-19 13:47] VITALS: BP 118/79
[2018-02-19 17:21] VITALS: BP 114/73
[2018-02-19] MEDS: IPRATROPIUM BROM 0.5 MG/2.5ML INH SOL NEB SCH ×2 (19:16)
[2018-02-19] MEDS: ALBUTEROL SULF 2.5 MG/0.5ML(0.5%) NEB SOLN NEB SCH ×2 (19:17)
[2018-02-19] MEDS: LORazepam 0.5 MG TAB PO PRN (20:36)
[2018-02-19 21:30] VITALS: BP 140/76
[2018-02-19] MEDS: MONTELUKAST SODIUM 10 MG TAB PO SCH (22:02)
[2018-02-20] MEDS: methylPREDNISolone SOD SUCC 40 MG/ML VL IV SCH ×2 (00:01→11:58)
[2018-02-20] MEDS: ALBUTEROL SULF 2.5 MG/0.5ML(0.5%) NEB SOLN NEB SCH ×3 (00:30→12:55)
[2018-02-20] MEDS: IPRATROPIUM BROM 0.5 MG/2.5ML INH SOL NEB SCH ×3 (00:30→12:55)
[2018-02-20] MEDS: HYDROcodone-ACET 10/325MG TAB PO PRN ×2 (03:37→10:23)
[2018-02-20 05:00] VITALS: BP 121/68
[2018-02-20] MEDS: chlordiazePOXIDE HCL 25 MG CAP PO SCH ×2 (06:05→11:58)
[2018-02-20] MEDS: SODIUM CHLOR 0.9% PF (SALINE LOCK) 10ML VIAL/SYR IV SCH ×2 (06:05→14:00)
[2018-02-20 08:27] VITALS: BP 116/70
[2018-02-20] MEDS: AZITHROMYCIN 500MG/ 250ML 250 ML IV SCH (10:00)
[2018-02-20] MEDS: ENOXAPARIN SOD 60 MG/0.6 ML SYRINGE SC SCH (10:00)
[2018-02-20] MEDS: NITROGLYCERIN 0.2MG/HR TOPICAL PATCH TD SCH (10:00)
[2018-02-20] MEDS: NIFEdipine ER 30 MG TAB PO SCH (10:22)
[2018-02-20] MEDS: LORazepam 0.5 MG TAB PO PRN (10:22)
[2018-02-20] MEDS: PANTOPRAZOLE 40 MG TAB PO SCH (10:22)
[2018-02-20] MEDS: ASPirin 81 mg TAB PO SCH (10:22)
[2018-02-20] MEDS: THEOPHYLLINE 80 MG/15ml ORAL Elixir PO SCH (10:23)
[2018-02-20] MEDS: ENALAPRIL MALEATE 10 MG TAB PO SCH (10:23)
[2018-02-20] MEDS: CARVEDILOL 12.5 MG TAB PO SCH (10:23)
[2018-02-20] MEDS: cefTRIAXone 1GM/10ml IVPUSH 10 ML IV SCH (10:24)
[2018-02-20] MEDS: THIAMINE 100mg/ml INJ (200mg/2ml VIAL) IV SCH (10:24)
[2018-02-20 12:33] VITALS: BP 117/84
== END 2018-02-20 17:00 | disposition home or self-care (01) | DRG 194 ==
LOC: EDBD 10:10 → ER 10:10 → TELE 10:11 → TELE-WESTW 20:00 → TELE 20:12 → DOU IN ICU 02-13 16:00 → TELE-WESTW 02-18 12:57
PROVIDERS: ADMIT Internal Medicine; ATTEND Internal Medicine
DX: I11.0 Hypertensive heart disease with heart failure (principal); J96.21 Acute and chronic respiratory failure with hypoxia; E43 Unspecified severe protein-calorie malnutrition; J44.1 Chronic obstructive pulmonary disease with (acute) exacerbation; I50.31 Acute diastolic (congestive) heart failure; I24.9 Acute ischemic heart disease, unspecified; R07.9 Chest pain, unspecified; E78.5 Hyperlipidemia, unspecified; F12.90 Cannabis use, unspecified, uncomplicated; F10.20 Alcohol dependence, uncomplicated; F41.9 Anxiety disorder, unspecified; R00.0 Tachycardia, unspecified; K59.00 Constipation, unspecified; R79.89 Other specified abnormal findings of blood chemistry; F17.210 Nicotine dependence, cigarettes, uncomplicated; I25.10 Atherosclerotic heart disease of native coronary artery without angina pectoris; Z82.49 Family history of ischemic heart disease and other diseases of the circulatory system; Z91.19 Patient's noncompliance with other medical treatment and regimen; Z88.0 Allergy status to penicillin; Z79.899 Other long term (current) drug therapy
CPT/HCPCS: 36415; 36600; 71045; 71046; 71275; 76705; 78452; 80053; 80061; 80307; 81001; 82550; 82805; 83605; 83735; 83880; 84443; 84484; 85025; 85379; 85652; 86141; 86704; 86706; 86708; 86803; 87040; 87081; 87340; 93005; 93017; 94640; 94644; 94761; 96365; 96366; 96372; 96375; J0153; J2270; J2405

== ENCOUNTER 2018-04-27 06:57 | Emergency (ER) | payer OTHER ==
[~2018-04-27] VITALS: Ht 188 cm; Wt 93.0 kg
[~2018-04-27 06:57] MED LIST changes: +ASPI81CH4 PO; +DICL75TA2 PO; +FURO20TA3 PO; +HYDR-531 PO; +IPRAAER6 IN; +MET50T PO; +RANI150C11 PO; +VERA240C2 PO
[2018-04-27 07:35] VITALS: BP 121/86
[2018-04-27] MEDS ORDERED: ONDANSETRON ODT 4 MG TAB PO ONE (08:30)
[2018-04-27] MEDS ORDERED: MORPHINE SULFATE 4 MG/ML SYR/VIAL IM ONE (08:30)
== END 2018-04-27 08:51 | disposition home or self-care (01) ==
LOC: ER 06:57
DX: S22.42XA Multiple fractures of ribs, left side, initial encounter for closed fracture (principal); I11.0 Hypertensive heart disease with heart failure; I50.9 Heart failure, unspecified; J44.9 Chronic obstructive pulmonary disease, unspecified; Z87.891 Personal history of nicotine dependence; Z88.0 Allergy status to penicillin; Z79.82 Long term (current) use of aspirin; W19.XXXA Unspecified fall, initial encounter; Y93.89 Activity, other specified; Y92.89 Other specified places as the place of occurrence of the external cause; Y99.8 Other external cause status
CPT/HCPCS: 71101; 96372; 99284; J2270; Q0162

== ENCOUNTER 2018-12-06 10:26 | Emergency (ER) | payer MEDICAID ==
[~2018-12-06] VITALS: Ht 198.1 cm; Wt 86.2 kg
[~2018-12-06 10:26] MED LIST changes: +ALB5IS NEB; +BUPR-40 PO; -HYDR-1421 PO; -HYDR-531 PO; -IBU800T PO; +LORA-655 PO; +MONT10TA34 PO; +MULTTAB61 PO; +PANT40TA2 PO; +PERCOT PO; +POTA1TAB61 PO; +SERDISK IN; +[UNRECOGNIZED DRUG - CODE] PO
[2018-12-06 11:36] LABS: Basophils # (auto) 0 uL; Basophils % (auto) 0.4 % (0.0-2.0); Eosinophils # (auto) 0.2 uL; Eosinophils % (auto) 1.8 % (0.0-7.0); Hematocrit 44.5 % (41.0-53.0); Hemoglobin 14.5 g/dL (13.5-17.5); Lymphocytes # (auto) 0.9 uL; Lymphocytes % (auto) 9.5 % (10.0-50.0); Mean Corpuscular Hemoglobin 32.7 pg (28.0-32.0); Mean Corpuscular Hgb Conc. 32.6 g/dL (32.0-36.0); Mean Corpuscular Volume 100.4 fL (80.0-100.0); Monocytes # (auto) 0.8 uL; Monocytes % (auto) 8.4 % (0.0-12.0); Neutrophils # (auto) 7.2 uL; Neutrophils % (auto) 79.9 % (37.0-80.0); Platelet Count (auto) 178 10^3/uL (140-450); Red Blood Cells 4.44 10^6/uL (4.5-5.90); Red Cell Distribution Width 14.4 % (11.8-14.3)
[2018-12-06 11:54] LABS: Albumin 3.6 g/dL (3.4-5.0); Calcium 8.8 mg/dL (8.5-10.1); Magnesium 2.7 mg/dL (1.6-2.6); Potassium 4.3 mmol/L (3.5-5.1)
[2018-12-06 11:57] LABS: BUN/Creatinine Ratio 20.2; Bilirubin, Total 0.4 mg/dL (0.2-1.0); Total Protein 6.5 g/dL (6.4-8.2)
[2018-12-06 12:27] LABS: Urine Bacteria NONE SEEN /hpf (None Seen); Urine Blood Negative /uL (Negative); Urine Specific Gravity 1.019 (1.001-1.035); Urine WBC 1 /hpf (0 - 3)
[2018-12-06 12:57] VITALS: BP 120/66
[2018-12-06] MEDS ORDERED: LORazepam 2MG/ML-1ML VIAL IV ONE (13:15)
[2018-12-06 13:44] LABS: Amphetamine Screen, Urine NEGATIVE (NEGATIVE); Barbiturate Scree,Urine NEGATIVE (NEGATIVE); Benzodiazephine Screen, Urine NEGATIVE (NEGATIVE); Cannabinoid Screen, Urine POSITIVE (NEGATIVE); Cocaine Screen, Urine NEGATIVE (NEGATIVE); Opiate Scree,Urine NEGATIVE (NEGATIVE); Phencyclidine Screen, Urine NEGATIVE (NEGATIVE)
== END 2018-12-06 16:09 | disposition home or self-care (01) ==
LOC: EDBD 10:26 → ER 10:32
DX: R56.9 Unspecified convulsions (principal); D75.89 Other specified diseases of blood and blood-forming organs; F10.10 Alcohol abuse, uncomplicated; F12.10 Cannabis abuse, uncomplicated; J44.9 Chronic obstructive pulmonary disease, unspecified; I10 Essential (primary) hypertension; Z87.891 Personal history of nicotine dependence
CPT/HCPCS: 36415; 70450; 71046; 80053; 80307; 81001; 83735; 85025; 93005; 96374; 99284; J2060

== ENCOUNTER 2019-01-16 07:41 | Emergency (ER) | payer MEDICAID ==
[~2019-01-16] VITALS: Ht 188 cm; Wt 93.0 kg
[2019-01-16 08:15] LABS: Urine Bacteria NONE SEEN /hpf (None Seen); Urine Blood Negative /uL (Negative); Urine Specific Gravity 1.007 (1.001-1.035); Urine WBC <1 /hpf (0 - 3)
[2019-01-16] MEDS ORDERED: SODIUM CHLORIDE 0.9% 1,000 ML IV ONE (10:23)
[2019-01-16] MEDS ORDERED: METOCLOPRAMIDE HCL 5MG/ml INJ 2ml VIAL IV ONE (10:30)
[2019-01-16] MEDS ORDERED: MORPHINE SULFATE 4 MG/ML SYR/VIAL IV PRN (10:30)
[2019-01-16 12:00] VITALS: BP 132/74
== END 2019-01-16 12:33 | disposition left against medical advice (07) ==
LOC: ER 07:41 → EDBD 07:41 → ER 12:33
DX: S22.42XA Multiple fractures of ribs, left side, initial encounter for closed fracture (principal); I11.0 Hypertensive heart disease with heart failure; I50.9 Heart failure, unspecified; J44.9 Chronic obstructive pulmonary disease, unspecified; Z88.0 Allergy status to penicillin; Z79.899 Other long term (current) drug therapy; Z87.891 Personal history of nicotine dependence; Z53.29 Procedure and treatment not carried out because of patient's decision for other reasons; W19.XXXA Unspecified fall, initial encounter; Y93.89 Activity, other specified; Y92.89 Other specified places as the place of occurrence of the external cause; Y99.8 Other external cause status
CPT/HCPCS: 71046; 71101; 81001; 93005; 96374; 96375; 99284; J2270; J2765; J7030

== ENCOUNTER → 2020-06-01 | Emergency (ER) | payer OTHER, MEDICAID ==
[~2020-06-01] VITALS: Ht 188 cm; Wt 93.4 kg
[~2020-06-01] MED LIST changes: -ASPI81CH4 PO; +ASPI81CH74 PO; +MULT-1018 PO; -MULTTAB61 PO; +SODIUM CHLORIDE 0.9% 1,000 ML IV ONE; +THEO1TAB4 PO; -[UNRECOGNIZED DRUG - CODE] PO; +diphenhdrAMINE HCL 25 MG CAP PO ONE; +methylPREDNISolone SOD SUCC 125 MG/2 ML VL IV ONE
[2020-06-01 06:40] LABS: Basophils # (auto) 0.1 10 ^3/uL (0-0.2); Hemoglobin 13.3 g/dL (13.5-17.5)
[2020-06-01 06:43] LABS: Basophils % (auto) 1.2 % (0.0-2.0); Eosinophils # (auto) 0.2 10 ^3/uL (0-0.8); Eosinophils % (auto) 3.5 % (0.0-7.0); Hematocrit 41.2 % (41.0-53.0); Lymphocytes # (auto) 0.7 10 ^3/uL (0.4-5.4); Lymphocytes % (auto) 16.3 % (10.0-50.0); Mean Corpuscular Hemoglobin 33.3 pg (28.0-32.0); Mean Corpuscular Hgb Conc. 32.3 g/dL (32.0-36.0); Monocytes # (auto) 0.5 10 ^3/uL (0-1.3); Monocytes % (auto) 11.3 % (0.0-12.0); Neutrophils % (auto) 67.7 % (37.0-80.0); Platelet Count (auto) 199 10^3/uL (140-450); Red Cell Distribution Width 13.8 % (11.8-14.3); White Blood Cell 4.4 10^3/uL (4.4-10.8)
[2020-06-01 06:58] LABS: Albumin 3.4 g/dL (3.4-5.0); BUN/Creatinine Ratio 18.8; Calcium 8.7 mg/dL (8.5-10.1); Potassium 4.5 mmol/L (3.5-5.1)
[2020-06-01 07:00] LABS: Bilirubin, Total 0.4 mg/dL (0.2-1.0); Total Protein 6.6 g/dL (6.4-8.2)
[2020-06-01 07:48] VITALS: BP 128/80
== END | disposition home or self-care (01) ==
LOC: ER 05:42
DX: T78.40XA Allergy, unspecified, initial encounter (principal); F12.10 Cannabis abuse, uncomplicated; I11.0 Hypertensive heart disease with heart failure; I50.9 Heart failure, unspecified; J44.9 Chronic obstructive pulmonary disease, unspecified; Z87.891 Personal history of nicotine dependence; Z79.899 Other long term (current) drug therapy; Z88.0 Allergy status to penicillin; X58.XXXA Exposure to other specified factors, initial encounter
CPT/HCPCS: 36415; 71045; 80053; 85025; 96361; 96374; 99285; J2930